=== PATIENT | male | born 1995 | race Caucasian/White ===

== ENCOUNTER 2020-08-24 01:07 | Inpatient (IN) | payer MEDICAID, OTHER ==
[~2020-08-24] VITALS: Ht 182.9 cm; Wt 113.5 kg
[~2020-08-24 01:07] MED LIST: NOCURR
[2020-08-24 01:54] LABS: BASOPHILS % (AUTO) 0.8 % (0.0-2.0); HEMATOCRIT 48.3 % (41-53); HEMOGLOBIN 16.4 g/dL (13.5-17.5); LYMPHOCYTES # (AUTO) 1.6 K/uL (1.0-4.8); LYMPHOCYTES % (AUTO) 20.1 % (22.0-44.0); MEAN CORPUSCULAR HEMOGLOBIN 27.6 pg (26.0-34.0); MEAN CORPUSCULAR VOLUME 81 fL (80-100); MONOCYTES # (AUTO) 0.6 K/uL (0.1-1.0); MONOCYTES % (AUTO) 7.8 % (2.0-9.0); NEUTROPHILS # (AUTO) 5.4 K/uL (1.8-7.7); NEUTROPHILS % (AUTO) 68.3 % (40.0-70.0); PLATELET COUNT (AUTO) 221 K/uL (150-450); RED BLOOD CELL COUNT(AUTO) 5.95 MIL/uL (4.50-5.90)
[2020-08-24 02:07] LABS: ANION GAP 7 mmol/L (8-16); CALCIUM, TOTAL 8.9 mg/dL (8.8-10.5); CARBON DIOXIDE 29 mmol/L (22-29); CHLORIDE 106 mmol/L (98-107); CREATININE 1.02 mg/dL (0.60-1.30); GLOMERULAR FILTR. RATE CALC > 60 mL/min (>60); GLUCOSE,RANDOM 122 mg/dL (70-110); POTASSIUM 3.9 mmol/L (3.5-5.1); SODIUM SERUM 142 mmol/L (136-145); UREA NITROGEN, BLOOD 9 mg/dL (7-18)
[2020-08-24 02:12] LABS: ALANINE AMINOTRANSFERASE 45 U/L (12-78); ALBUMIN 4.2 g/dL (3.4-5.0); ALKALINE PHOSPHATASE 113 U/L (46-116); ASPARTATE AMINOTRANSFERASE 13 U/L (15-37); BILIRUBIN,TOTAL 0.2 mg/dL (0.1-1.0); TOTAL PROTEIN, SERUM 8.2 g/dL (6.4-8.2)
[2020-08-24 02:44] LABS: AMPHET/METH SCREEN,URINE NEGATIVE (NEGATIVE); BARBITURATE SCREEN, URINE NEGATIVE (NEGATIVE); BENZODIAZEPINES SCREEN,URINE NEGATIVE (NEGATIVE); CANNABINOID SCREEN,URINE POSITIVE (NEGATIVE); COCAINE SCREEN,URINE NEGATIVE (NEGATIVE); METHADONE SCREEN, URINE NEGATIVE (NEGATIVE); OPIATE SCREEN,URINE NEGATIVE (NEGATIVE)
[2020-08-24] MEDS ORDERED: ZOLPIDEM TARTRATE 10 MG TABLET PO PRN (02:45)
[2020-08-24] MEDS ORDERED: LORazepam 2 MG TABLET PO PRN (02:45)
[2020-08-24] MEDS ORDERED: OLANZapine 5 MG RAPDIS TABLET PO PRN (02:45)
[2020-08-24 02:46] LABS: PHENCYCLIDINE SCREEN,URINE NEGATIVE (NEGATIVE)
[2020-08-24 02:52] LABS: COVID AG,FIA SOURCE NASOPHARYNGEAL
[2020-08-24] MEDS ORDERED: PERTUSS(ACELL),DIPH,TET VAC/PF 0.5 ML VIAL IM ONE (03:15)
[2020-08-24 03:50] LABS: APPEARANCE,URINE CLEAR (CLEAR); BILIRUBIN,URINE NEGATIVE (NEGATIVE); GLUCOSE, URINE (UA) NEGATIVE (NEGATIVE); KETONES,URINE NEGATIVE (NEGATIVE); LEUKOCYTE ESTERASE ,URINE NEGATIVE (NEGATIVE); NITRATE,URINE NEGATIVE (NEGATIVE); OCCULT BLOOD,URINE NEGATIVE (NEGATIVE); PH,URINE 5.5 (5.0-8.0); PROTEIN,URINE TRACE (NEGATIVE); UROBILINOGEN,URINE 0.2 mg/dL (<=1.0)
[2020-08-24] MEDS ORDERED: BACITRACIN 0.9 GM PACKET OINTMENT TP ONE (04:15)
[2020-08-24 04:55] VITALS: BP 156/82
[2020-08-24] MEDS ORDERED: PNEUMOCOCCAL VACCINE POLYVALENT 0.5 ML VIAL [PPSV23] IM ONE (06:15)
[2020-08-24] MEDS ORDERED: INFLUENZA VIRUS VACCINE QVS 2020-21 (6MO+)/PF 60 MCG/0.5 ML SYRINGE IM ONE (06:15)
[2020-08-24] MEDS: AmLODIPine BESYLATE 5 MG TABLET PO SCH (08:36)
[2020-08-24] MEDS ORDERED: CloNIDine HCL 0.1 MG TABLET PO PRN (10:00)
[2020-08-24] MEDS ORDERED: GuaiFENesin/D-METHORPHAN [SUGAR-FREE] 200-20MG/10 ML SYRUP UDCUP PO PRN (11:30)
[2020-08-24] MEDS ORDERED: HydrOXYzine PAMOATE 50 MG CAPSULE PO PRN (11:30)
[2020-08-24] MEDS ORDERED: TUBERCULIN, PURIFIED PROTEIN DERIVATIVE 5 TU/0.1 ML SYRINGE ID ONE (11:30)
[2020-08-24] MEDS ORDERED: ACETAMINOPHEN 325 MG TABLET PO PRN (11:30)
[2020-08-24] MEDS ORDERED: LOPERAMIDE HCL 2 MG CAPSULE PO PRN (11:30)
[2020-08-24] MEDS ORDERED: FLUoxetine HCL 20 MG CAPSULE PO ONE (11:30)
[2020-08-24] MEDS ORDERED: PROMETHAZINE HCL 25 MG TABLET PO PRN (11:30)
[2020-08-24] MEDS ORDERED: MAG HYDROX/AL HYDROX/SIMETH ES 30 ML SUSPENSION UDCUP PO PRN (11:30)
[2020-08-24] MEDS ORDERED: MAGNESIUM HYDROXIDE SUSPENSION 30 ML UDCUP PO PRN (11:30)
[2020-08-24] MEDS: THIAMINE 100 MG TABLET PO SCH (16:00)
[2020-08-25] MEDS: NALTREXONE HCL 50 MG TABLET PO SCH (07:51)
[2020-08-25] MEDS: FLUoxetine HCL 20 MG CAPSULE PO SCH (07:51)
[2020-08-25] MEDS: THIAMINE 100 MG TABLET PO SCH ×2 (07:51→16:01)
[2020-08-25] MEDS: AmLODIPine BESYLATE 5 MG TABLET PO SCH (07:51)
[2020-08-25] MEDS: FOLIC ACID 1 MG TABLET PO SCH (07:51)
[2020-08-25] MEDS: OMEGA-3/DHA/EPA/FISH OIL 1,000 MG CAPSULE PO SCH (07:51)
[2020-08-25] MEDS: MULTIVITAMINS WITH MINERALS, THERAPEUTIC TABLET PO SCH (07:51)
[2020-08-25 08:17] VITALS: BP 164/112
[2020-08-25 08:40] VITALS: BP 183/95
[2020-08-25 09:18] VITALS: BP 150/80
[2020-08-25 09:40] VITALS: BP 162/93
[2020-08-25 16:00] VITALS: BP 128/81
[2020-08-25 20:22] VITALS: BP 158/83
[2020-08-26] MEDS: AmLODIPine BESYLATE 5 MG TABLET PO SCH (08:11)
[2020-08-26] MEDS: FOLIC ACID 1 MG TABLET PO SCH (08:11)
[2020-08-26] MEDS: THIAMINE 100 MG TABLET PO SCH ×2 (08:11→16:52)
[2020-08-26] MEDS: NALTREXONE HCL 50 MG TABLET PO SCH (08:11)
[2020-08-26] MEDS: FLUoxetine HCL 20 MG CAPSULE PO SCH (08:11)
[2020-08-26] MEDS: OMEGA-3/DHA/EPA/FISH OIL 1,000 MG CAPSULE PO SCH (08:11)
[2020-08-26] MEDS: MULTIVITAMINS WITH MINERALS, THERAPEUTIC TABLET PO SCH (08:11)
[2020-08-26 08:26] VITALS: BP 141/77
[2020-08-26 17:13] VITALS: BP 128/81
[2020-08-27 08:15] VITALS: BP 155/100
[2020-08-27] MEDS: OMEGA-3/DHA/EPA/FISH OIL 1,000 MG CAPSULE PO SCH (08:31)
[2020-08-27] MEDS: AmLODIPine BESYLATE 5 MG TABLET PO SCH (08:31)
[2020-08-27] MEDS: NALTREXONE HCL 50 MG TABLET PO SCH (08:31)
[2020-08-27] MEDS: THIAMINE 100 MG TABLET PO SCH (08:31)
[2020-08-27] MEDS: MULTIVITAMINS WITH MINERALS, THERAPEUTIC TABLET PO SCH (08:31)
[2020-08-27] MEDS: FLUoxetine HCL 20 MG CAPSULE PO SCH (08:31)
[2020-08-27] MEDS: FOLIC ACID 1 MG TABLET PO SCH (08:31)
[2020-08-27] MEDS ORDERED: OMEG-135 PO (11:52)
[2020-08-27] MEDS ORDERED: FLUO-191 PO (11:52)
[2020-08-27] MEDS ORDERED: NALT50TA PO (11:52)
[2020-08-27] MEDS ORDERED: AMLO-257 PO (12:55)
== END 2020-08-27 15:22 | disposition home or self-care (01) | DRG 750 ==
LOC: EMS 01:09 → 3EI 02:37 → EMS 04:35
PROVIDERS: ADMIT Psychiatry & Neurology Psychiatry; ATTEND Psychiatry & Neurology Psychiatry
PROC: 3E0234Z Introduction of Serum, Toxoid and Vaccine into Muscle, Percutaneous Approach (ICD-10-PCS; principal; 2020-08-24)
PROC: 3E02340 Introduction of Influenza Vaccine into Muscle, Percutaneous Approach (ICD-10-PCS; 2020-08-24)
DX: F25.1 Schizoaffective disorder, depressive type (principal); F41.0 Panic disorder [episodic paroxysmal anxiety]; I10 Essential (primary) hypertension; Z91.5 Personal history of self-harm; F17.200 Nicotine dependence, unspecified, uncomplicated; F33.2 Major depressive disorder, recurrent severe without psychotic features; S60.511A Abrasion of right hand, initial encounter; X83.8XXA Intentional self-harm by other specified means, initial encounter; Y93.89 Activity, other specified; Y92.89 Other specified places as the place of occurrence of the external cause; Y99.8 Other external cause status; Z20.828 Contact with and (suspected) exposure to other viral communicable diseases; Z23 Encounter for immunization
CPT/HCPCS: 83036; 87426; 90686; G0480